=== PATIENT | female | born 1955 | race Caucasian/White ===

== ENCOUNTER 2018-05-14 08:13 | Day surgery (SDC) | payer BC ==
[~2018-05-14 08:13] MED LIST: LIDOCAINE HCL 1% MPF 30 SOL ONE; PROPOFOL 500 MG/50 ML EMU IV ONE
[2018-05-14 09:50] VITALS: O2SAT 100
[2018-05-14 10:13] VITALS: BP 114/72; PULSE 56; RESP 20; TEMP 97.4
== END 2018-05-14 10:25 | disposition home or self-care (01) ==
LOC: SURG 08:13
PROVIDERS: ATTEND Surgery
DX: Z12.11 Encounter for screening for malignant neoplasm of colon (principal); Z80.0 Family history of malignant neoplasm of digestive organs; Z86.010 Personal history of colon polyps; L81.8 Other specified disorders of pigmentation
CPT/HCPCS: J2001; J2704